=== PATIENT | male | born 1965 | race African-American/Black ===

== ENCOUNTER 2019-02-01 08:50 | Outpatient (CLI) | payer BC ==
[2019-02-01 11:52] LABS: Hemoglobin 13.6 g/dL (14.0-18.0); Mean Corpuscular HGB CONC 32.9 g/dL (32.0-36.0); Mean Corpuscular Hemoglobin 28.2 pg (27.0-31.0); Mean Corpuscular Volume 85.5 fL (78.0-98.0); Mean Platelet Volume 7.4 fL (7.4-10.4); Platelet Count 305 thou/uL (130-400); RBC Distribution Width 12.8 % (11.5-14.5); Red Blood Cell (RBC) Count 4.81 mill/uL (4.70-6.10); White Blood Cell (WBC) Count 5.1 thou/uL (4.8-10.8)
[2019-02-01 11:57] LABS: Bacteria/HPF None Seen HPF (None Seen); Bilirubin Negative (Negative); Blood, Urine Trace (Negative); Clarity Clear (Clear); Glucose, Urine (Dipstick) Normal (Negative); Leukocyte Negative Leu/uL (Negative); Nitrite Negative (Negative); Protein, Urine (Dipstick) Negative (Neg-Trace); Squamous Epithelial None Seen HPF (0-3); Urobilinogen Normal mg/dL (Less than 2); WBC/HPF 0-3 HPF (0-3)
[2019-02-01 12:08] LABS: INR-International Normal Ratio 0.9; PTT 31.7 SEC (22.9-36.1); Prothrombin Time 12.1 SEC (12.0-14.7)
[2019-02-01 12:15] LABS: Anion Gap 12 mmol/L (10-20); BUN (Urea Nitrogen) 25 mg/dL (8.4-25.7); Calc. Creatinine Clearance 0 mL/min (70-130); Calcium 9.2 mg/dL (7.8-10.44); Carbon Dioxide 24 mmol/L (22-29); Chloride 104 mmol/L (98-107); Estimated GFR-MDRD 84; Glucose 99 mg/dL (70-105); Potassium 3.4 mmol/L (3.5-5.1); Sodium 137 mmol/L (136-145)
--- NOTE | 2019-02-02 17:16 | EKG ---
Test Reason : Blood Pressure : / mmHG Vent. Rate : 086 BPM Atrial Rate : 086 BPM P-R Int : 154 ms QRS Dur : 082 ms QT Int : 376 ms P-R-T Axes : 076 043 043 degrees QTc Int : 449 ms Normal sinus rhythm RSR' or QR pattern in V1 suggests right ventricular conduction delay Voltage criteria for left ventricular hypertrophy Abnormal ECG Confirmed by ELZBIETA RYDER ([id number]) on 02/02/2019 5:15:43 PM Referred By: AMY Confirmed By:ELZBIETA RYDER
== END 2019-02-01 08:51 | disposition home or self-care (01) ==
LOC: LABBT 08:50
PROVIDERS: ATTEND Urology
DX: Z01.818 Encounter for other preprocedural examination (principal)
CPT/HCPCS: 80048; 81001; 85027; 85610; 85730; 87086; 93005; 93010

== ENCOUNTER 2019-02-13 06:26 | Day surgery (SDC) | payer BC ==
[2019-02-01 09:08] VITALS: BMI 27.6
[2019-02-13] MEDS ORDERED: Levofloxacin 500 mg/D5W 100 ml Premix Bag ONE (07:01)
[2019-02-13] MEDS ORDERED: Sodium Chloride 0.9% 100 ML ONE (07:01)
[2019-02-13] MEDS ORDERED: Sodium Chloride 0.9% 0 ML ONE (07:01)
[2019-02-13] MEDS ORDERED: cefTRIAXone\\ROCEPHIN 1 GM VIAL ONE (07:01)
[2019-02-13] MEDS ORDERED: Fentanyl 100 MCG/2 ML VIAL ONE (09:04)
[2019-02-13] MEDS ORDERED: Phenazopyridine HCl 97.5 MG TABLET ONE (10:31)
--- NOTE | 2019-02-13 13:00 | OP ---
DATE OF PROCEDURE: 02/13/2019 PREOPERATIVE DIAGNOSIS: A 53-year-old male with elevated PSA, preop labs demonstrating newly appreciated microscopic hematuria. POSTOPERATIVE DIAGNOSIS: A 53-year-old male with elevated PSA, preop labs demonstrating newly appreciated microscopic hematuria. PROCEDURES PERFORMED: Flexible cystoscopy, transrectal ultrasound 12-core needle prostate biopsy. ANESTHESIA: LMA. COMPLICATIONS: None apparent. DISPOSITION: To recovery room in stable condition. INDICATIONS FOR PROCEDURE AND HISTORY: Mr. Wilde is a 53-year-old male with history of elevated PSA, denied obstructive urinary symptoms, with history of HIV followed by Dr. Cardenas with undetectable viral load. The patient cleared by Infectious Disease to proceed with prostate biopsy. Risks and complications and indications reviewed including, but not limited to, bleeding, pain, infection, injury to each inner organs, urosepsis, chronic pain. Blood in the urine and stool was discussed with him in detail. He desired to proceed. Pre-prostate biopsy labs demonstrated incidental microscopic hematuria, the patient was informed to proceed with flexible cystoscopy component as well, and he desired to proceed. I do plan to obtain upper tract imaging CT hematuria protocol at a later date. DESCRIPTION OF PROCEDURE: After an informed consent was signed, the patient was taken to the operating room, placed in supine position with the genital area prepped and draped in the usual surgical sterile fashion. A flexible cystoscope was passed after formal prep. This demonstrated normal anterior and posterior urethra. Mild BPH component lateral lobe hyperplasia was noted with no evidence of intravesical median lobe. Bladder was entered, which demonstrated no bladder lesions, stones , and tumors of concern. Bilateral UOs are in normal orthotopic position with location about 4 to 5 mm proximal to the bladder neck. At this time, the scope was completely removed and we placed a transrectal ultrasound probe while the patient was placed in the left lateral decubitus position. A volume study was performed , which demonstrated urethral length of 4.82, width of 4.6, height of 3.5, volume estimated to be 42 g. A 12 standard needle core prostate biopsy was performed in a systematic manner. He tolerated the procedure well and transported to the recovery room in stable condition. He is discharged with Levaquin x3 days, will follow up with me on February 24 at 9:45 to review pathology results. Job ID: [id number] [facility]
[2019-02-13] MEDS ORDERED: Ondansetron PF 4 MG/2 ML Vial ONE (17:22)
[2019-02-13] MEDS ORDERED: PROPOFOL 200 MG/20 ML VIAL ONE (17:22)
[2019-02-13] MEDS ORDERED: Dexamethasone 20 MG/5 ML VIAL ONE (17:22)
== END 2019-02-13 11:50 | disposition home or self-care (01) ==
LOC: SDC 06:26 → EEVIPCON 08:45 → SDC 11:50
PROVIDERS: ATTEND Urology
PROC: 0VB03ZX Excision of Prostate, Percutaneous Approach, Diagnostic (ICD-10-PCS; principal; 2019-02-13)
DX: N40.0 Benign prostatic hyperplasia without lower urinary tract symptoms (principal); I10 Essential (primary) hypertension; K21.9 Gastro-esophageal reflux disease without esophagitis; Z79.899 Other long term (current) drug therapy; Z87.891 Personal history of nicotine dependence
CPT/HCPCS: 88305; J0696; J1100; J1956; J2405; J2704; J3010; J3490